=== PATIENT | female | born 1965 | race Caucasian/White ===

== ENCOUNTER 2021-01-23 20:55 | Emergency (ER) | payer SELFPAY ==
[2021-01-23 21:01] VITALS: BP 141/91; PULSE 88; RESP 18; TEMP 36.4; O2SAT 97
[2021-01-23] MEDS: Tetracaine 0.5% 4 ML BTL OP (21:10)
[2021-01-23] MEDS: Balanced Salt Solution 15 ML BTL OP (21:10)
[2021-01-23] MEDS: Fluorescein STRIPS 100/BOX 1 MG OP (21:10)
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
[2021-01-23] MEDS: Erythromycin Ophth Oint 3.5 GM TUBE OP (21:45)
== END 2021-01-23 21:48 | disposition home or self-care (01) ==
PROVIDERS: Emergency Provider Registered Nurse Emergency; PCP Nurse Practitioner Family
DX: S05.02XA Injury of conjunctiva and corneal abrasion without foreign body, left eye, initial encounter (principal); W50.4XXA Accidental scratch by another person, initial encounter
CPT/HCPCS: 99283; 99282

== ENCOUNTER 2024-07-25 01:58 | Outpatient (CLI) | payer SELFPAY ==
[2024-07-25 11:38] LABS: COMMENT (LAB VIEW ONLY) 213.89 mg/dL; Hemoglobin A1C 6.4 % (<5.7); Microalb ug/mg Crea 9.6 ug/mg Cr
[2024-07-25 11:45] LABS: FREE T4 0.83 ng/dL (0.76-1.46)
[2024-07-25 12:27] LABS: Calculated LDL 191 mg/dL (<100); Cholesterol 289 mg/dL (<200); HDL Cholesterol 45 mg/dL (>or=50); Triglyceride 265 mg/dL (<150); Vitamin D 25 Total 21 ng/mL (30-100)
[2024-07-27 10:18] LABS: Adrenocorticotropic Hormone, P 13 pg/mL
== END 2024-07-25 01:59 | disposition home or self-care (01) ==
PROVIDERS: PCP Nurse Practitioner Family; Visit Provider Student in an Organized Health Care Education/Training Program
DX: E11.9 Type 2 diabetes mellitus without complications (principal); E55.9 Vitamin D deficiency, unspecified; E03.8 Other specified hypothyroidism; E27.40 Unspecified adrenocortical insufficiency
CPT/HCPCS: 36415; 80061; 82306; 82533; 82024; 82043; 82570; 83036; 84439